=== PATIENT | male | born 1975 | race Caucasian/White ===

== ENCOUNTER → 2018-03-14 | Day surgery (SDC) | payer OTHER ==
[~2018-03-14] VITALS: Ht 188 cm; Wt 86.2 kg
--- NOTE | 2018-03-14 14:46 | Operative Report ---
Operative/Inv Procedure Report Surgery Date: 03/14/18 Name of Procedure: excision soft tissue mass face Pre-Operative Diagnosis: Soft tissue mass left face Post-Operative Diagnosis: Same Estimated Blood Loss: scant Surgeon/[employer]: Darshan Ferrer MD Anesthesia: laryngeal mask airway Operative/Procedure Note Note: Patient was counseled extensively regards to the procedure the alternatives the risks and expected outcomes as relates to his request for surgical intervention to treat symptomatic left cheek mass which is deep. It is greater than 3 cm. We talked about the risks including but not limited to infection bleeding pain definitely visible scarring possibly unsightly or symptomatic recurrence injury surrounding her deeper structures resulting in a disability. Once agreed informed consent was signed. He was taken to the operating room placed supine on the table Venodyne boots are placed and laryngeal mask anesthesia was established and intravenous antibiotics were given. The face was prepped and draped in usual sterile fashion. Curvilinear incision was made over the soft tissue mass including its central 4. He was dissected free from the surrounding tissue and removed staying close and right on top of the capsule. The wound was irrigated and made hemostatic and closed in 2 layers. The soft tissue mass was greater than 3.4 cm a portion of which was sent for pathologic analysis. Steri- Strips were placed and direct pressure was held during the extubation.
== END ==
LOC: STS 02:17
DX: D21.0 Benign neoplasm of connective and other soft tissue of head, face and neck (principal)
CPT/HCPCS: J0690; J2250